=== PATIENT | female | born 1945 | race African-American/Black ===

== ENCOUNTER 2017-06-27 13:15 | Emergency (ER) | payer OTHER, MEDICAID ==
[~2017-06-27] VITALS: Ht 167.6 cm; Wt 59.0 kg
[2017-06-27] MEDS ORDERED: ALBUTEROL (0.083%) 2.5MG/3ML NEB HHN STA (13:30)
[2017-06-27] MEDS ORDERED: IPRATROPIUM BROMIDE (0.02%) 0.5MG/2.5ML NEB HHN STA (13:30)
[2017-06-27] MEDS ORDERED: PREDNISONE 20MG TABLET PO STA (13:30)
[2017-06-27 13:59] LABS: BASOPHILS % 0.7 % (0.0-2.0); EOSINOPHILS % 2.2 % (0.0-5.0); HEMATOCRIT. 36.2 % (36.0-48.0); HEMOGLOBIN. 12.1 g/dL (12.0-16.0); LYMPHOCYTES % 25.6 % (20.0-50.0); MEAN CORPUSCULAR VOLUME 74.6 fL (81.0-99.0); MEAN PLATELET VOLUME 8.5 fl (7.4-10.4); MONOCYTES % 7.4 % (2.0-8.0); NEUTROPHILS % 64.1 % (40.0-76.0); PLATELET 70 x1000/uL (130-400); RED BLOOD CELL COUNT 4.86 mill/uL (4.2-5.4); RED CELL DISTRIBUTION WIDTH 18.8 % (11.6-14.6)
[2017-06-27 14:03] LABS: CHLORIDE 111 mEq/L (98-107)
[2017-06-27 14:06] LABS: INR 1.1; PARTIAL THROMBOPLASTIN TIME 24.3 sec (23.4-31.0); PROTHROMBIN TIME 11.2 sec (9.4-11.6)
[2017-06-27] MEDS ORDERED: MAGNESIUM/ALUMINUM HYDROXIDE/SIMETHICONE 30ML UDC PO STA (14:16)
[2017-06-27] MEDS ORDERED: MORPHINE SULFATE 4 MG/ML CPJ (NOT FOR IM USE) IV STA (14:16)
[2017-06-27] MEDS ORDERED: ONDANSETRON HCL 4MG/2ML VIAL IV STA (14:16)
[2017-06-27] MEDS ORDERED: SODIUM CHLORIDE 0.9% 500 ML IV ONE (14:16)
[2017-06-27] MEDS ORDERED: FAMOTIDINE 20MG/2ML VIAL IV ONE (14:30)
[2017-06-27] MEDS ORDERED: LEVOFLOXACIN 500MG PREMIX 100 ML IV ONE (14:30)
[2017-06-27 15:22] LABS: INR 1.1; PARTIAL THROMBOPLASTIN TIME 24.7 sec (23.4-31.0); PROTHROMBIN TIME 11.4 sec (9.4-11.6)
[2017-06-27 16:40] VITALS: BP 119/74
== END 2017-06-27 17:45 | disposition short-term general hospital (02) ==
LOC: ER 14:17 → CANBEDREQ 16:59 → ER 17:45
DX: J45.909 Unspecified asthma, uncomplicated (principal); R51 Headache; R07.9 Chest pain, unspecified; E11.9 Type 2 diabetes mellitus without complications
CPT/HCPCS: 36415; 70450; 71045; 80053; 83690; 83880; 84443; 84484; 85025; 85610; 85730; 87040; 93005; 94640; 96365; 96375; 99285; J1956; J3490; J7040; J7512; J7611

== ENCOUNTER 2018-02-10 10:08 | Emergency (ER) | payer OTHER, MEDICAID ==
[~2018-02-10] VITALS: Ht 160 cm; Wt 61.0 kg
[2018-02-10 10:12] VITALS: BP 138/82
== END 2018-02-10 10:21 | disposition left against medical advice (07) ==
LOC: ER 10:08
DX: Z53.21 Procedure and treatment not carried out due to patient leaving prior to being seen by health care provider (principal)